=== PATIENT | male | born 1955 | race Caucasian/White ===

== ENCOUNTER 2017-03-07 20:03 | Inpatient (IN) | payer MEDICARE, MEDICAID ==
[~2017-03-07] VITALS: Ht 182.9 cm; Wt 128.5 kg
--- NOTE | 2017-03-07 20:20 | NUR ---
STATUS PT YELLS "OW" WHEN STUCK FOR AN IV.
[2017-03-07] MEDS ORDERED: SPIR25TA PO (20:23)
[2017-03-07] MEDS ORDERED: GLIM4TAB PO (20:24)
[2017-03-07] MEDS ORDERED: ASPI-1099 PO (20:24)
--- NOTE | 2017-03-07 20:25 | NUR ---
STATUS PT STATES "OW" AND PULLS ARM AWAY WHEN WORKING WITH IV.
[2017-03-07] MEDS ORDERED: CLON1TAB4 PO (20:26)
[2017-03-07] MEDS ORDERED: NORMAL SALINE 1,000 ML IV ONE (20:30)
[2017-03-07] MEDS ORDERED: BISA-72 PO (20:32)
[2017-03-07] MEDS ORDERED: FURO-153 PO (20:32)
[2017-03-07] MEDS ORDERED: CYAN100099 PO (20:32)
[2017-03-07] MEDS ORDERED: POLY119P3 PO (20:32)
[2017-03-07] MEDS ORDERED: LACT10SO PO (20:32)
[2017-03-07] MEDS ORDERED: FERR-70 PO (20:32)
[2017-03-07] MEDS ORDERED: METO25TA3 PO (20:35)
[2017-03-07] MEDS ORDERED: TRAZ-170 PO (20:35)
[2017-03-07] MEDS ORDERED: METO2.5T2 PO (20:35)
--- NOTE | 2017-03-07 20:35 | NUR ---
STATUS PT STATES "OW" WHEN CATHED FOR URINE
[2017-03-07] MEDS ORDERED: HYDR28OI10 TOP (20:38)
[2017-03-07] MEDS ORDERED: DRON5CAP2 PO (20:38)
[2017-03-07] MEDS ORDERED: HYDR25TA85 PO (20:38)
[2017-03-07] MEDS ORDERED: DULO60CA46 PO (20:38)
[2017-03-07] MEDS ORDERED: PRIM50TA23 PO (20:38)
[2017-03-07 20:40] LABS: BASOPHILS % (AUTO) 0.2 % (0-2); EOSINOPHILS # (AUTO) 0.3 T/MM3 (0-0.5); EOSINOPHILS % (AUTO) 3.4 % (0-4); HCT - HEMATOCRIT 42.9 % (41-53); HGB - HEMOGLOBIN 13.3 GM/DL (13.5-17.5); IMMATURE GRANULOCYTE # (AUTO) 0.02 T/MM3 (0.00-0.03); IMMATURE GRANULOCYTE % (AUTO) 0.2 % (0.0-0.5); LYMPHOCYTES % (AUTO) 22.7 % (23-45); MEAN CORPUSCULAR HGB 30.1 UUG (26-34); MEAN CORPUSCULAR VOLUME 97.1 UM3 (80-100); MEAN PLATELET VOLUME 10.8 UM3 (9.4-12.4); MONOCYTES # (AUTO) 0.8 T/MM3 (0-0.8); MONOCYTES % (AUTO) 8.7 % (0-9.0); NEUTROPHILS #(AUTO)-ABSOLUTE 5.7 T/MM3 (1.8-7.7); NEUTROPHILS % (AUTO) 64.8 % (33-66); RED BLOOD COUNT 4.42 M/MM3 (4.50-5.90); WBC - WHITE BLOOD COUNT 8.8 T/MM3 (4.5-11.0)
[2017-03-07 20:42] LABS: BLOOD, URINE NEGATIVE (NEGATIVE); COLOR,URINE YELLOW (YELLOW); LEUKOCYTE ESTERASE ,URINE NEGATIVE (NEGATIVE); NITRITE,URINE NEGATIVE (NEGATIVE); UROBILINOGEN,URINE 0.2 EU/DL (NORMAL)
[2017-03-07] MEDS ORDERED: NYST60PO TOP ×2 (20:42→20:47)
[2017-03-07] MEDS ORDERED: POTA-81 PO (20:42)
[2017-03-07] MEDS ORDERED: GABA600T PO (20:44)
[2017-03-07] MEDS ORDERED: HYDR-4246 PO (20:44)
[2017-03-07] MEDS ORDERED: RISP3TAB3 PO (20:44)
[2017-03-07] MEDS ORDERED: MAG-37 PO (20:47)
[2017-03-07] MEDS ORDERED: DEXT15DR5 BOTH EYES (20:47)
[2017-03-07] MEDS ORDERED: BISA10SU61 RECTALLY (20:47)
[2017-03-07 20:49] LABS: LACTATE - LACTIC ACID 1.4 MMOL/L (0.6-2.2)
[2017-03-07] MEDS ORDERED: MAGN400O4 PO (20:50)
[2017-03-07] MEDS ORDERED: ACET325T51 PO (20:50)
[2017-03-07] MEDS ORDERED: BISM262O28 PO (20:50)
[2017-03-07 20:53] LABS: ALBUMIN 3.6 G/DL (3.5-5.0); ALBUMIN/GLOBULIN RATIO 0.9 RATIO (1.1-2.2); ALKALINE PHOSPHATASE 95 U/L (38-126); ALT (SGPT) 29 U/L (21-72); ANION GAP 11 MEQ/L (5-15); AST (SGOT) 18 U/L (17-59); BUN/CREATININE RATIO 28 RATIO (6-26); CALCIUM 9.4 MG/DL (8.4-10.2); CHLORIDE 104 MEQ/L (98-107); CO2 - CARBON DIOXIDE 31 MEQ/L (22-30); CREATININE 1.4 MG/DL (0.8-1.5); GLOMERULAR FILTRATION RATE 52; GLUCOSE 72 MG/DL (75-110); SODIUM 146 MEQ/L (134-144); TOTAL PROTEIN 7.4 G/DL (6.3-8.2)
--- NOTE | 2017-03-07 20:58 | ERPDOC ---
Departure Disposition Decision Date: Mar 07, 2017 Disposition Decision Time: 22:19 (OBEDCITLALY Anushka BIBLE WORKER) Disposition: 01 DISCHARGED HOME, SELF-CARE Impression Impression (DESTINY CLAYA Anushka DELUNA) Impression: Primary Impression: Decreased level of consciousness Severity: Moderate (LISAIGOR,CITLALY N BIBLE WORKER) Condition: Stable Seen By: Mid-level only (CITLALY CLAY APRN) Referrals: JAMARI JACKSON MD (Family) Problems/Meds/Labs Reviewed?: Yes Medications reviewed and manag: Yes (LISADESTINY COSTAA Anushka CASTANON) Follow up care ordered?: Yes Mental Status: Alert, Confused (LISADESTINY COSTAA Anushka BIBLE WORKER) HPI - General Medical General Chief Complaint: Dyspnea/Respdistress Stated Complaint: UNRESPONSIVE Time Seen by Provider: 20:09 Source: EMS Exam Limitations: clinical condition (LISACITLALY COSTA APRN) Time Seen by Provider: 20:09 (ISELA PERALTA MD) HPI - General Medical Initial Comments He is a resident at [facility]. Tonight he was sitting in the dining room for dinner. Suddenly slouched over and became unresponsive. EMS was called and when they got to his room where he was taken his O2 sats were noted to be in the 70s. He was placed on Non rebreather and sates did come up to the 90s. Transported to Er at that time. He has remained unresponsive to verbal stimuli upon arrival. He does have a history of traumatic brain injury when he was young and has been in the [facility] since then. Is non ambulatory normally but does converse with family. He has not had a fever or vomiting or diarrhea recently. Has not been ill. Noted b/p is in the 90-110s systolic. Occurred At: home Onset: Rapid Duration: 1 hr Severity: moderate Associated Symptoms: other (Unable to give HPI due to condition) Hx of Similar Symptoms: No (LISAMEDEIROSESA N BIBLE WORKER) Allergies: Coded Allergies: lisinopril (Verified Allergy, Unknown, 03/07/17) prednisone (Verified Allergy, Unknown, 03/07/17) Past History Patient Medical History Problem List Updates: traumatic brain injury (CITLALY CLAY APRN) Past Medical History Metabolic: diabetes, hypertension (DESTINY CLAYA N BIBLE WORKER) Family History Family History: Negative (OBED,CITLALY N BIBLE WORKER) Social History Smoking Status: Never smoker Substance Use Type: does not use Alcohol Intake: none (NOIGOR,CITLALY N BIBLE WORKER) Review of Systems Unable to Obtain ROS Due to: clinical condition, other (HPI taken is from EMS per penitentiary staff) (OBED,CITLALY N BIBLE WORKER) Constitutional Constitutional: DENIES: chills, fatigue, fever, weakness (NOIGOR,CITLALY N BIBLE WORKER) GI Upper Abdomen: DENIES: nausea, vomiting Lower Abdomen: DENIES: diarrhea (NOIGOR,CITLALY N BIBLE WORKER) Integumentary Skin: DENIES: rash (NOIGOR,CITLALY N BIBLE WORKER) Physical Exam General General Nourishment: well nourished, well developed, appears stated age, no acute distress, adult General Body Habitus: well groomed (OBED,CITLALY N BIBLE WORKER) Vitals and Pain Weight: Kilograms: 130.000 Height (feet): 6 Height (inches): 0 Triage Pain Scale: (DESTINY CLAYA Anushka BIBLE WORKER) RN VS reviewed by Provider: Yes (DESTINY CLAYA N BIBLE WORKER) Normal Exams: Neck: Full range of motion, without adenopathy, JVD, bruits or thyromegaly Chest/Resp: Clear all aguilar, with good airflow, and symmetry bilaterally CV: Regular rate and rhythm, without murmur or gallop, Pulses 2+ all extremities, capillary refill, <2 seconds all ext., no pedal edema noted Abdomen: Bowel sounds positive, soft, non-tender, non-distended, no hepatosplenomegaly, masses or bruits noted Lymphatic: No lymphadenopathy, or lymphedema noted Integumentary: No rashes, hives, or bruising noted (NOIGOR,CITLALY N BIBLE WORKER) Eyes (brief) Eyes Brief: found: PERRL (NOIGOR,CITLALY N BIBLE WORKER) ENMT (brief) ENMT Brief: FOUND: TM clear, TM good light reflex, ear canals clear, mucosa moist, normal dentition, normal tonsils, NOT FOUND: lesions, nasal erythema, nasal exudate, nasal swelling, petechiae, pharnyx erythema, tonsillar deviation (NOLD,CITLALY N BIBLE WORKER) Neurologic GCS Adult : GCS Eye Opening: (2)To Pain GCS Verbal: (3)Inappropriate GCS Motor: (5)Localizes to Pain (NOLD,CITLALY N BIBLE WORKER) Differential Diagnoses Considering: Acute AR, Hypo/Hyperglycemia, Hypo/Hyperkalemia, Hypo/ Hypernatremia, Intracranial Hemorrhage, Medication Effect, Metabolic, UTI, Other (Sepsis, accidental overdose) (NOLD,CITLALY N BIBLE WORKER) Progress Results/Orders Orders Procedure Category Date Status Time EKG EKG 03/07/[address] Head W/O Contrast CT 03/07/17 Resulted Chest 1 View RAD 03/07/17 Resulted Ua, Dip Wreflex LAB 03/07/17 Complete 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 20:09 Blood Culture SOFIE 03/07/17 Complete 20:09 Cbc W/Auto LAB 03/07/17 Complete Diff-Reflex Manual Cmp - Comprehensive LAB 03/07/17 Complete Metabolic Iv Lock (Ed Only) EDM 03/07/17 Transmitted 20:09 Troponin I W LAB 03/07/17 Complete Hemolysis Index Lactate - Lactic Acid LAB 03/07/17 Complete Lactate - Lactic Acid LAB 03/08/17 Complete 00:39 Procalcitonin LAB 03/07/17 Complete 20:09 Normal Saline (Normal PHA 03/07/17 Complete Saline Iv) 20:30 Place In Facility As: ADMIT 03/07/17 Transmitted (ISELA PERALTA MD) Lab Results Laboratory Tests Test 03/07/17 20:32 White Blood Count 8.8T/MM3 Red Blood Count 4.42M/MM3 Hemoglobin 13.3GM/DL Hematocrit 42.9% Mean Corpuscular Volume 97.1UM3 Mean Corpuscular Hemoglobin 30.1UUG Mean Corpuscular Hemoglobin Concent 31.0GM/DL RDW Standard Deviation 56.9FL Platelet Count 153T/MM3 Mean Platelet Volume 10.8UM3 Immature Granulocyte % (Auto) 0.2% Neutrophils (%) (Auto) 64.8% Lymphocytes (%) (Auto) 22.7% Monocytes (%) (Auto) 8.7% Eosinophils (%) (Auto) 3.4% Basophils (%) (Auto) 0.2% Absolute Immature Granulocyte (auto 0.02T/MM3 Absolute Neutrophils (auto) 5.7T/MM3 Absolute Lymphocytes (auto) 2.0T/MM3 Absolute Monocytes (auto) 0.8T/MM3 Absolute Eosinophils (auto) 0.3T/MM3 Absolute Basophils (auto) 0.0T/MM3 Urine Collection Type Cleancatch-midstream Urine Color Yellow Urine Turbidity Clear Urine pH 5.5 Urine Specific [place] 1.015 Urine Protein Negative Urine Glucose (UA) Negative Urine Ketones Negative Urine Blood Negative Urine Nitrite Negative Urine Bilirubin Negative Urine Urobilinogen 0.2EU/DL Urine Leukocyte Esterase Negative Urinalysis Comment Microscopic not ind. Turbidity < 20 Sodium Level 146MEQ/L Potassium Level 5.0MEQ/L Chloride Level 104MEQ/L Carbon Dioxide Level 31MEQ/L Anion Gap 11MEQ/L Blood Urea Nitrogen 39.0MG/DL Creatinine 1.4MG/DL Glomerular Filtration Rate Calc 52 BUN/Creatinine Ratio 28RATIO Glucose Level 72MG/DL Calculated Osmolality 289MOSM/KG Calcium Level 9.4MG/DL Total Bilirubin 0.80MG/DL Icterus Index < 2 Aspartate Amino Transf (AST/SGOT) 18U/L Alanine Aminotransferase (ALT/SGPT) 29U/L Alkaline Phosphatase 95U/L Troponin I 0.017ng/ml Total Protein 7.4G/DL Albumin 3.6G/DL Globulin 3.8G/DL Albumin/Globulin Ratio 0.9RATIO Plasma Lactate 1.4MMOL/L Procalcitonin 0.10NG/ML Chemistry Specimen Hemolysis < 15 (ISELA PERALTA MD) Medications Current ED Medications Sodium Chloride (Normal Saline IV) 1,000 ml @ 1,000 mls/hr Q1H ONCE IV ; Start 03/07/17 at 20:30; Stop 03/07/17 at 21:29; Status DC (ISELA PERALTA MD) Progress Progress WBC is 8.8 and without a left shift. Na 146 but otherwise unremarkable CMP. Troponin today is negative. Lactate today is normal at 1.4 with procalcitonin of 0.10. CT of head is negative for ICH. Chest xray is poor due to patient posture of flexed neck but no focal pneumonia was identified. Upon reevaluation he does open his eyes briefly when his name is spoken and asked to open his eyes. His mom and brother are at bedside and they states that this is the first he has done this. Did discuss labs, HPI, and xray with Dr Mccray and he will admit at this time. (CITLALY CLAY APRN) CT CT : Reason for Exam: Decreased LOC CT: Head no contrast Interpretation: Normal (CITLALY CLAY APRN) CITLALY CLAY APRN Mar 07, 2017 20:58 ISELA PERALTA MD Mar 16, 2017 09:14
--- NOTE | 2017-03-07 22:32 | NUR ---
ADMIT [facility] RN ASSIGNS ROOM 131 WITH NURSE TANIA ALDRIDGE
--- NOTE | 2017-03-07 22:38 | NUR ---
REPORT GIVEN TO TANIA ALDRIDGE
[2017-03-07 22:50] VITALS: BP 109/72; PULSE 85; RESP 24; TEMP 95.2; O2SAT 95; Ht 182.9 cm; Wt 128.5 kg
--- NOTE | 2017-03-07 22:50 | NUR ---
ADMISSION PT TRANSFERRED FROM ED VIA CART, 3 PERSON ASSIST TO BED VIA SLIDE BOARD.
--- NOTE | 2017-03-07 23:23 | NUR ---
SPEECH AND DIETARY DURING THE HIGH RISK ASSESSMENT PT FLAGGED FOR NEED OF SPEECH EVALUATION AND CUSTOMER SUCCESS ADVOCATE. WILL PASS ON TO ONCOMING NURSE IN THE AM.
[2017-03-08] VITALS (10 sets, daily range): BP systolic 104–115; BP diastolic 67–79; PULSE 75–87; RESP 16–24; TEMP 95.3–97.5; O2SAT 90–100
[2017-03-08] MEDS ORDERED: ONDANSETRON 4mg/2ml INJECTION IV PRN (00:45)
[2017-03-08] MEDS ORDERED: BISACODYL 10 MG SUPPOSITORY RECTALLY PRN (00:45)
[2017-03-08] MEDS ORDERED: GLUCOSE ORAL GEL 40% 37.5 G TUBE PO PRN ×2 (01:00)
[2017-03-08] MEDS ORDERED: DEXTROSE 50% SYRINGE 50ml (Eq. 1 AMP) IV PRN ×2 (01:00)
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
[2017-03-08] MEDS: D5-1/2 NS 1,000 ML IV SCH ×2 (01:14→11:28)
[2017-03-08] MEDS: NYSTATIN POWDER 15gm BOTTLE TOP SCH ×4 (01:23→21:27)
--- NOTE | 2017-03-08 02:55 | NUR ---
OXYGEN PT IS ON A SIMPLE MASK WITH OXYGEN AT 5L. RT STATES THAT WITH ABG'S AT THE LEVEL THEY'RE HE NEEDS TO STAY ON 5L. WILL CONTINUE TO MONITOR.
[2017-03-08 05:44] LABS: BASOPHILS % (AUTO) 0.2 % (0-2); EOSINOPHILS # (AUTO) 0.3 T/MM3 (0-0.5); EOSINOPHILS % (AUTO) 4.1 % (0-4); HCT - HEMATOCRIT 39.4 % (41-53); HGB - HEMOGLOBIN 11.8 GM/DL (13.5-17.5); IMMATURE GRANULOCYTE # (AUTO) 0.01 T/MM3 (0.00-0.03); IMMATURE GRANULOCYTE % (AUTO) 0.1 % (0.0-0.5); LYMPHOCYTES # (AUTO) 1.3 T/MM3 (1-4.8); LYMPHOCYTES % (AUTO) 16.5 % (23-45); MEAN CORPUSCULAR HGB 29.2 UUG (26-34); MEAN CORPUSCULAR HGB CONC(MCHC 29.9 GM/DL (31-37); MEAN CORPUSCULAR VOLUME 97.5 UM3 (80-100); MEAN PLATELET VOLUME 10.6 UM3 (9.4-12.4); MONOCYTES # (AUTO) 0.7 T/MM3 (0-0.8); MONOCYTES % (AUTO) 8.4 % (0-9.0); NEUTROPHILS #(AUTO)-ABSOLUTE 5.8 T/MM3 (1.8-7.7); NEUTROPHILS % (AUTO) 70.7 % (33-66); RED BLOOD COUNT 4.04 M/MM3 (4.50-5.90); WBC - WHITE BLOOD COUNT 8.1 T/MM3 (4.5-11.0)
--- NOTE | 2017-03-08 05:44 | NUR ---
SHIFT SUMMARY PT HAS SLEPT THROUGHOUT THE SHIFT, WAKING WHEN MOVED OR CHANGED. MOTHER AT BEDSIDE. VITAL SIGNS HAVE BEEN STABLE ON 5L VIA SIMPLE MASK. PT IS INCONTINENT. PT IS BEDREST AT THIS TIME AND REQUIRES 2 TO 3 PEOPLE TO REPOSITION. PT ALSO HAS SEVERAL NOTED SKIN ISSUES (SEE SHIFT PHYSICAL) WILL CONTINUE TO MONITOR.
[2017-03-08 05:55] LABS: ANION GAP 10 MEQ/L (5-15); BUN/CREATININE RATIO 25 RATIO (6-26); CALCIUM 8.9 MG/DL (8.4-10.2); CHLORIDE 104 MEQ/L (98-107); CO2 - CARBON DIOXIDE 32 MEQ/L (22-30); CREATININE 1.4 MG/DL (0.8-1.5); GLOMERULAR FILTRATION RATE 52; GLUCOSE 101 MG/DL (75-110); POTASSIUM 4.3 MEQ/L (3.6-5); SODIUM 146 MEQ/L (134-144)
--- NOTE | 2017-03-08 06:46 | NUR ---
WOUND CONSULT ORDER PLACED FOR WOUND CONSULT REGARDING OPEN WOUND (PRESSURE ULCER) ON RIGHT BUTTOCK>
[2017-03-08] MEDS: SENNA + DOCUSATE TAB PO SCH ×2 (10:36→21:25)
[2017-03-08] MEDS: DOCUSATE SODIUM 100 MG CAPSULE PO SCH ×2 (10:36→21:25)
[2017-03-08] MEDS: INSULIN ASPART 100 UNIT/ML SQ PRN (11:28)
--- NOTE | 2017-03-08 17:10 | DI ---
Indication: ITS.REASON: altered LOC PROCEDURE: CT HEAD W/O CONTRAST: Encounter: Initial Comparison: None Technique: Axial CT images through the head were performed without contrast. Iterative Reconstruction dose reducing technique was utilized. FINDINGS: The ventricles are of normal size, shape, and contour for the patient's age. There are scattered areas of low attenuation in the white matter which most likely represent changes from chronic microvascular ischemia. The brainstem, cerebellum, and cerebral hemispheres otherwise have a normal morphology and CT attenuation. There is no evidence of midline displacement. No hemorrhage, signs of acute territorial stroke, mass effect, mass lesions, or edema is evident. The visualized portions of the skull base, midface, and calvarium demonstrate no abnormality. The paranasal sinuses are well aerated and free of significant disease. The tympanic and mastoid cavities appear normal. IMPRESSION: No acute intracranial abnormality or hemorrhage. There is a preliminary report by [employer]. .
--- NOTE | 2017-03-08 17:10 | DI ---
Indication: ITS.REASON: altered LOC PROCEDURE: CHEST 1 VIEW: Encounter: Initial Comparison: None Findings: Prominent interstitial markings. Left lung base is obscured by overlapping soft tissues and enlarged cardiac silhouette. No gross pneumothorax. Portions of the apices are obscured by the patient's chin. Cardiac silhouette is severely enlarged. Mediastinal contours are widened. Pulmonary vascularity is prominent. Impression: 1. Limited exam with limited visualization of the apices and left base. Pneumonia cannot be excluded in the left lower lobe. Probable mild pulmonary edema as well. 2. Severe enlargement of the cardiac silhouette could be due to cardiomegaly or pericardial effusion. .
[2017-03-08] MEDS ORDERED: BISACODYL 10 MG SUPPOSITORY RECTALLY SCH (17:45)
[2017-03-08] MEDS ORDERED: SPIRONOLACTONE 25 MG TABLET PO SCH (17:45)
--- NOTE | 2017-03-08 18:38 | NUR ---
SHIFT PT HAS BEEN PLEASANT AND COOPERATIVE ALL SHIFT. PT'S LOC HAS BEEN DECREASED THIS AM BUT PT DID WAKE UP AT 1000 AND VERBALIZE NEEDS. PT HAS EATEN 100% OF MEALS, DENIES SOA AND N/V BUT REPORTS SOME PAIN THROUGHOUT BODY. DR. GARAY ORDERED HOME MEDS. FAMILY HAS BEEN AT BEDSIDE AND PT HAS BEEN TURNED Q2H. NO OTHER CHANGES SINCE PREVIOUS SHIFT.
[2017-03-08] MEDS: DULOXETINE 60 MG CAPSULE PO SCH (21:24)
[2017-03-08] MEDS: GABAPENTIN 600 MG TABLET PO SCH (21:25)
[2017-03-08] MEDS: DRONABINOL 2.5 MG CAPSULE PO SCH (21:25)
[2017-03-08] MEDS: PRIMIDONE 50 MG TABLET PO SCH (21:26)
[2017-03-08] MEDS ORDERED: TRAZODONE 50 MG TABLET PO SCH (22:00)
[2017-03-08] MEDS ORDERED: CLONAZEPAM 1 MG TABLET PO SCH (22:00)
[2017-03-08] MEDS: ACETAMINOPHEN 325 MG TABLET PO PRN (22:32)
[2017-03-09 01:00] VITALS: O2SAT 96
--- NOTE | 2017-03-09 02:46 | NUR ---
Chart Check 24 hour chart check completed
[2017-03-09 03:00] VITALS: O2SAT 97
[2017-03-09] MEDS: ACETAMINOPHEN 325 MG TABLET PO PRN (04:45)
[2017-03-09 05:05] LABS: ALBUMIN 3.1 G/DL (3.5-5.0); ANION GAP 9 MEQ/L (5-15); BUN/CREATININE RATIO 28 RATIO (6-26); CALCIUM 9.1 MG/DL (8.4-10.2); CHLORIDE 101 MEQ/L (98-107); CO2 - CARBON DIOXIDE 30 MEQ/L (22-30); CREATININE 1.2 MG/DL (0.8-1.5); GLOMERULAR FILTRATION RATE 62; GLUCOSE 92 MG/DL (75-110); PHOSPHORUS 3.6 MG/DL (2.5-4.5); POTASSIUM 3.9 MEQ/L (3.6-5); SODIUM 140 MEQ/L (134-144)
[2017-03-09 06:20] LABS: HEMOGLOBIN A1C 5.5 % (6.1-7.9)
[2017-03-09] MEDS ORDERED: DiphenhydrAMINE 25 MG CAPSULE PO PRN (06:45)
--- NOTE | 2017-03-09 07:28 | NUR ---
STATUS PATIENT C/O PAIN AT RT SHOULDER AND ANKLE. PRN TYLENOL WAS ADMINISTRATED FOR PAIN. PATIENT IS INCONTINENT BOWEL.PATIENT HAD ONE INCONTINENT AND CONTINENT BLADDER.PATIENT USED URINAL. PATIENT HAD A COUPLE TIMES OF SMEAR AMOUNT OF STOOL DURING NIGHT. ON 3L O2 VIA NC . NO C/O CHEST PAIN ,SOA,OR N/V. PATIENT C/O ITCHING AT ABDOMEN ,LEGS,AND ARMS. NOTIFIED DR SHIRLEY VIA TIGHTER TEXT. PRN BENADRYL WAS ADMINISTRATED. PATIENT USED CALL LIGHTS CONSTANTLY. CHANGED Q2H POSITION WITH ERGO-NURSE MACHINE.CONTINUE TO MONITOR.
[2017-03-09 07:35] VITALS: BP 107/72; PULSE 83; RESP 18; TEMP 96.3; O2SAT 100
[2017-03-09 07:43] VITALS: PULSE 83; RESP 18
[2017-03-09] MEDS ORDERED: FERROUS SULFATE 324 MG TABLET PO SCH ×2 (08:00→09:13)
[2017-03-09] MEDS ORDERED: BISACODYL 5 MG E.C. TABLET PO SCH (09:00)
[2017-03-09] MEDS ORDERED: ASPIRIN 81 MG CHEWABLE TABLET PO SCH (09:00)
[2017-03-09] MEDS ORDERED: LACTULOSE 20 GM/30 ML UD PO SCH (09:00)
[2017-03-09] MEDS ORDERED: METOPROLOL XL 25 MG TABLET PO SCH (09:00)
[2017-03-09] MEDS ORDERED: FUROSEMIDE 40 MG TABLET PO SCH (09:00)
[2017-03-09] MEDS ORDERED: POLYETHYL.GLYCOL 3350 PACKET 17gm PO SCH (09:00)
[2017-03-09] MEDS ORDERED: CYANOCOBALAMIN (B-12) 500mcg TABLET PO SCH (09:00)
[2017-03-09] MEDS: SENNA + DOCUSATE TAB PO SCH (09:17)
[2017-03-09] MEDS: DULOXETINE 60 MG CAPSULE PO SCH (09:17)
[2017-03-09] MEDS: GABAPENTIN 600 MG TABLET PO SCH ×2 (09:17→16:23)
[2017-03-09] MEDS: DOCUSATE SODIUM 100 MG CAPSULE PO SCH (09:18)
[2017-03-09] MEDS: DRONABINOL 2.5 MG CAPSULE PO SCH (09:19)
[2017-03-09] MEDS: PRIMIDONE 50 MG TABLET PO SCH (09:19)
[2017-03-09] MEDS: NYSTATIN POWDER 15gm BOTTLE TOP SCH ×2 (09:37→16:24)
[2017-03-09 11:51] VITALS: BP 110/75; PULSE 83; RESP 22; TEMP 96; O2SAT 92
--- NOTE | 2017-03-09 11:51 | PDWOUND ---
Wound Documentation Wound Management Wound : Location Modifier: Left Wound Location: Buttocks Wound Type: Other (Laceration) Wound Dressing Frequency: every other day Wound Duration: 3 days Wound Dressing Status: FOUND: Moist Wound Drainage Amount: Minimal Wound Drainage Description: Serosanguineous Wound Drainage Odor: None/Absent Wound General Appearance: FOUND Unapproximated Wound Bed: gran red Wound Length (cm): 1.3 Wound Width (cm): 0.2 Wound Depth (cm): 0.2 Exposed: partial Wound Cleanser: soap and water Comments Pt is having stools at this time staff instructed to keep wound cleaned, as much as possible. HANSEL BRYSON RN Mar 09, 2017 11:51
[2017-03-09] MEDS ORDERED: BISACODYL 10 MG SUPPOSITORY RECTALLY PRN (12:00)
[2017-03-09] MEDS: INSULIN ASPART 100 UNIT/ML SQ PRN (13:00)
--- NOTE | 2017-03-09 13:14 | NUR ---
FEDERICA STALLWORTH PLACED CALL TO FINN AT [facility] [phone], FINN MADE AWARE THAT PT WILL LIKELY DC TODAY, FINN AWARE OF POTENTIAL DC.
--- NOTE | 2017-03-09 13:42 | PDOCECFAO ---
Admission Orders Admission Orders Admit to: [facility] Allergies: Coded Allergies: lisinopril (Verified Allergy, Unknown, 03/07/17) prednisone (Verified Allergy, Unknown, 03/07/17) Admitting Diagnosis Decreased Loc Admitting Physician Kortney Sylvester MD Code Status Do Not Resuscitate Anticipated LOS: Greater than 30 days Rehab Potential: Poor Rehab Prognosis: Poor Diet: No Concentrated Sweets Wound/Incision Care: Continue prior orders May use Facility Protocol /SO: Yes May Have Flu Vaccine: Yes Retirement Certification I certify that SNF services are required to be given on an Inpatient basis because of the patients need for correction care on a continuing basis for the condition(s) for which he/she received inpatient hospital services prior to his/her transfer to the SNF. SNF inpatient care is necessary for the following reasons Not Applicable Cardiac or Respiratory Arrest In Event of Arrest: Do Not Start CPR Additional Orders: Resume prior orders; follow-up with Dr. Ruelas in the near future. Monitor Accu-Cheks fasting and 2 hours after meals. Discontinue glimepiride. 3 L supplemental oxygen while sleeping (for probable sleep apnea), has not required oxygen while awake. Patient would benefit from formal sleep study in the near future. KORTNEY SYLVESTER MD Mar 09, 2017 13:42
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
--- NOTE | 2017-03-09 14:48 | NUR ---
CM DC TIME OUT COMPLETE. ALL ORDERS SENT TO POST ACUTE CARE SETTING. FINN AWARE TO CONTACT CM SHOULD NEEDS ARISE.
[2017-03-09] MEDS ORDERED: CALMOSEPTINE OINT. 113 gm TUBE TOP SCH (15:00)
--- NOTE | 2017-03-09 15:17 | NUR ---
FALL RISK ASSESSMENT - PHARMACY This patient has HIGH FALL RISK with meds. Patient's Risk Score =/> 6. Medication appropriateness: The patient is taking a number antiseisure mediacations and sedatives. He is currently in a [facility]. Some meds have been placed on hold, such as hydroxyzine, which can cause extreme sedation. Recommdations: Continue precautions for a high risk patient. Xiang Howell, Pharmacist
--- NOTE | 2017-03-09 15:55 | NUR ---
DM screen Diet: CC 1999 Patient stated the only thing he does to manage his blood glucose is take medication. Although patient lives in nursing facility where his diabetes is closely monitored ,Patient stated that he was interested in further diabetes education. exercise science internship reviewed "Healthy Eating 1,2,3" handout with patient. Patient seemed receptive to the information and had no further questions after instruction. RD available @ [phone] Addendum: 03/09/17 at [address] Student charting reviewed by E M Assembler.
--- NOTE | 2017-03-09 17:20 | NUR ---
DISCHARGE PT DISCHARGED TO [facility]. REPORT CALLED DOCUMENTED. VS STABLE. IV REMOVED. TRANSFERRED TO WHEELCHAIR USING FULL LIFT AND ASSIST OF 4. PACKET GIVEN TO [facility].
--- NOTE | 2017-03-10 09:39 | ECHOF ---
DATE OF PROCEDURE March 09, [address] Kortney Sylvester This is a two-dimensional echo with spectral Doppler, color-flow and M-mode. It was obtained in a patient with hypoxia. Left atrium is dilated. Left ventricle end-diastolic dimension is increased. Left ventricle wall thickness is normal. Severe global hypokinesia is present with ejection fraction no more than 20%. Right atrium is dilated. Right ventricle is dilated. Aortic root dimension is normal. Mitral valve annulus is calcified. Mitral valve leaflets are normal with mild mitral regurgitation. Aortic valve shows mild fibrocalcific changes with no stenosis or insufficiency. Tricuspid valve shows mild tricuspid regurgitation with mild pulmonary hypertension with estimated pulmonary artery systolic pressure of 41. Pulmonary valve shows trace of pulmonary insufficiency. There is no pericardial effusion. IMPRESSION 1. Four-chamber dilation. 2. Severe global hypokinesia with ejection fraction no more than 20%. 3. Mitral annulus calcification with mild mitral regurgitation. 4. Aortic sclerosis. 5. Mild tricuspid regurgitation with mild pulmonary hypertension with estimated pulmonary artery systolic pressure of 41. 6. Trace of pulmonary insufficiency. MTDD
== END 2017-03-09 17:20 | DRG 312 ==
LOC: ED 20:03 → EDHOLD 22:19 → SRG 22:50
PROVIDERS: ADMIT Pediatrics; ATTEND Internal Medicine
DX: R55 Syncope and collapse (principal); E87.0 Hyperosmolality and hypernatremia; L40.9 Psoriasis, unspecified; L89.159 Pressure ulcer of sacral region, unspecified stage; M19.90 Unspecified osteoarthritis, unspecified site; E11.9 Type 2 diabetes mellitus without complications; F41.9 Anxiety disorder, unspecified; F32.9 Major depressive disorder, single episode, unspecified; F43.10 Post-traumatic stress disorder, unspecified; N18.3 Chronic kidney disease, stage 3 (moderate); G47.34 Idiopathic sleep related nonobstructive alveolar hypoventilation; E66.9 Obesity, unspecified; Z79.899 Other long term (current) drug therapy; Z79.82 Long term (current) use of aspirin; Z87.820 Personal history of traumatic brain injury; Z66 Do not resuscitate; Z68.38 Body mass index [BMI] 38.0-38.9, adult
CPT/HCPCS: 36415; 80048; 80053; 80069; 81003; 82803; 82948; 83036; 83605; 83735; 84145; 84484; 85025; 87040; 93005; 93306; 94762